=== PATIENT | female | born 1980 | race Caucasian/White ===

== ENCOUNTER → 2016-12-19 | Outpatient (CLI) | payer MEDICAID ==
[~2016-12-19] MED LIST: CIPRO500 MG PO; FLEXERIL10 MG PO; FLEXERIL5 MG PO; KEFLEX 500MG.500 MG PO; LORTAB 5/500 501 TAB PO; MACROBID 100MG100 MG PO; MEDROL 4MG. DOSE4 MG PO; NOMEDS XX; PHENERGAN 25MG.25 M1 PO; PNV-TOTAL1 SGL PO; PRENATAL PLUS1 TA1 PO; ZANTAC 150150 MG PO; Zofran4 MG PO
--- NOTE | 2016-12-19 14:59 | RADIOLOGY REPORT PS360 ---
US PREG FOLLOWUP SINGLE FETUS, US BIOPHYSICAL PROFILE, SD RATIO UMBILICAL ARTERY: Indication: Small for gestational age BIOPHYSICAL PROFILE ORDERING PHYSICIAN: Damon Cutler MD PATIENT AGE: 36 years FINDINGS: The following parameters are obtained: Average ultrasound age is 36 weeks 3 days. Estimated due date by ultrasound is 01/13/2017. There has been adequate progression compared to the previous exam of 01/11/2017.. Estimated weight is 2759 g. This is 69th percentile based on last menstrual period BPD: 37 weeks 0 days OFD: HC: 37 weeks 3 days AC: 35 weeks 2 days FL: 35 weeks 6 days heart rate: 134 bpm. HC/AC: 1.05 Cephalic index: 78% FL/BPD: 77% FL/AC: 22% Amniotic fluid index: 7.5 cm Qualitative AFV: 2 breathing movements: 2 Gross body movements: 2 Tone: 2 Biophysical profile score: 8/8 Doppler evaluation of the umbilical artery: SD ratio: 2.5 Resistive index: 0.6 No obvious anomalies evident. breathing movement and body movement noted Placenta: Posterior grade 2. No evidence of previa or abruption Cervix: Appears closed and measures 3 cm. IMPRESSION: There is a live intrauterine gestation at 36 weeks 3 days with adequate progression compared to the previous exam. Estimated weight is 6 pounds and 1 ounce which is 69 percentile based on last menstrual period. There is low amniotic fluid volume with an JOSE F of 7.5 cm. Biophysical profile is 8 of 8 and the umbilical artery parameters are within normal limits. Placenta is grade 2 and posterior.
== END ==
LOC: RAD 13:24
DX: O36.5131 Maternal care for known or suspected placental insufficiency, third trimester, fetus 1 (principal)

== ENCOUNTER → 2016-12-26 | Outpatient (CLI) | payer MEDICAID | LOC: LAB 15:57 | DX: Z34.80 Encounter for supervision of other normal pregnancy, unspecified trimester (principal) ==